=== PATIENT | female | born 1985 | race Two or more races ===

== ENCOUNTER → 2017-07-10 | Emergency (ER) | payer OTHER ==
[~2017-07-10] VITALS: Ht 160 cm; Wt 59.0 kg
[~2017-07-10] MED LIST: DOLOGEN CAPLET1 TAB PO; OSEL75CA PO; TUSICOF LIQUID120 ML PO; ZANTAC150 MG PO
== END | disposition left against medical advice (07) ==
LOC: ER 19:59
DX: Z53.20 Procedure and treatment not carried out because of patient's decision for unspecified reasons (principal)

== ENCOUNTER → 2017-08-10 06:56 | Outpatient (CLI) | payer OTHER | END | disposition home or self-care (01) | LOC: LAB 06:56 | DX: N93.9 Abnormal uterine and vaginal bleeding, unspecified (principal); N91.1 Secondary amenorrhea; N39.0 Urinary tract infection, site not specified; E03.9 Hypothyroidism, unspecified; E78.4 Other hyperlipidemia; E78.2 Mixed hyperlipidemia; N80.9 Endometriosis, unspecified ==

== ENCOUNTER → 2017-09-06 | Outpatient (CLI) | payer OTHER | END | disposition home or self-care (01) | LOC: SONOGRAMA 10:42 → MAMO-SONO 10:45 | DX: R10.2 Pelvic and perineal pain (principal) ==

== ENCOUNTER 2017-09-25 18:17 | Outpatient (CLI) | payer OTHER | END 2017-09-25 20:06 | disposition home or self-care (01) | LOC: LAB 18:17 | DX: Z11.3 Encounter for screening for infections with a predominantly sexual mode of transmission (principal) ==